=== PATIENT | female | born 1940 | race Caucasian/White ===

== ENCOUNTER 2018-01-20 17:40 | Emergency (ER) | payer OTHER ==
[~2018-01-20] VITALS: Ht 149.9 cm; Wt 50.8 kg
[~2018-01-20 17:40] MED LIST: ALBU90OI INH; AMLOATOR PO; ASPI81CH; Advil200 M1; Atrovent Inha12.9 GM INH; CILO50 PO; CLOP75 PO; CYCL10; HYDACE5 PO; HYDCHL12.5 PO; IBUHYD PO; INDO25 PO; LIVALO2 MG; METF500 PO; Prednisone50 MG PO; Zithromax250 MG PO
[2018-01-20] MEDS ORDERED: LOSA50 PO (17:52)
[2018-01-20] MEDS ORDERED: LEVSOD50 PO (17:52)
[2018-01-20 18:15] LABS: BASOPHILS ABSOLUTE AUTO 0.04 K/mm3 (0.00-0.23); BASOPHILS PERCENT AUTO 1 % (0-2); EOSINOPHILS ABSOLUTE AUTO 0.12 K/mm3 (0.00-0.68); EOSINOPHILS PERCENT AUTO 2 % (0-6); Hematocrit 41.4 % (33.0-51.0); Hemoglobin 13.5 g/dL (11.5-16.0); IMMATURE GRAN ABSOLUTE AUTO 0.01 K/mm3 (0.00-0.10); IMMATURE GRAN PERCENT AUTO 0 % (0-1); LYMPHOCYTES ABSOLUTE AUTO 1.74 K/mm3 (0.84-5.20); LYMPHOCYTES PERCENT AUTO 27 % (21-46); MONOCYTES ABSOLUTE AUTO 0.82 K/mm3 (0.16-1.47); MONOCYTES PERCENT AUTO 13 % (4-13); Mean Corpuscular HGB 29.4 pg (26.0-34.0); Mean Corpuscular HGB Conc 32.6 g/dL (31.5-36.5); Mean Corpuscular Volume 90 fL (80-100); Mean Platelet Volume 11.1 fL (9.1-12.4); NEUTROPHILS ABSOLUTE AUTO 3.78 K/mm3 (1.96-9.15); NEUTROPHILS PERCENT AUTO 58 % (41-73); Platelet Count 196 K/mm3 (150-400); RDW Coefficient Variation 14.1 % (11.7-14.2); RDW Standard Deviation 46.5 fL (35.1-46.3); Red Blood Cell Count 4.59 M/mm3 (3.80-5.20); White Blood Cell Count 6.51 K/mm3 (4.00-11.30)
[2018-01-20 18:37] LABS: Alanine Aminotransfer (ALT/SGP 14 U/L (12-78); Albumin, Blood 3.3 g/dL (3.4-5.0); Alk Phos 100 U/L (50-136); Anion Gap 7 mmol/L (6-16); Aspartate Aminotrans (AST/SGOT 16 U/L (12-37); Bilirubin, Total 0.4 mg/dL (0.1-1.0); Blood Urea Nitrogen 13 mg/dL (8-24); Bun/Creatinine Ratio 16.5 (12.0-20.0); CO2, Blood 25 mmol/L (21-32); Calcium, Blood 8.7 mg/dL (8.5-10.1); Chloride, Blood 108 mmol/L (98-108); Creatinine, Blood 0.79 mg/dL (0.40-1.00); Globulin, Blood 3.3 g/dL (2.2-4.0); Glomerular Filtration Rate >60 (60-); Glucose, Blood 142 mg/dL (70-99); Potassium, Blood 3.6 mmol/L (3.5-5.5); Sodium, Blood 140 mmol/L (136-145); Total Protein, Blood 6.6 g/dL (6.4-8.2); Troponin I <0.015 ng/mL (0.000-0.040)
== END 2018-01-20 20:17 | disposition home or self-care (01) ==
LOC: ER 17:40
PROVIDERS: Emergency Medicine
DX: R53.1 Weakness (principal); E86.0 Dehydration; I10 Essential (primary) hypertension; F17.210 Nicotine dependence, cigarettes, uncomplicated
CPT/HCPCS: 51701; 71046; 80053; 84484; 85025; 93005; 93010; 96360; 99284-25; J7030

== ENCOUNTER 2018-10-15 06:31 | Inpatient (IN) | payer MEDICARE, SELFPAY ==
[~2018-10-15] VITALS: Ht 149.9 cm; Wt 52.3 kg
[~2018-10-15 06:31] MED LIST changes: +LEVSOD50 PO; +LOSA50 PO; +METO25 PO; +XARELTO15 MG PO
[2018-10-15 06:56] LABS: BASOPHILS ABSOLUTE AUTO 0.04 K/mm3 (0.00-0.23); BASOPHILS PERCENT AUTO 0 % (0-2); EOSINOPHILS PERCENT AUTO 0 % (0-6); Hematocrit 46.3 % (33.0-51.0); Hemoglobin 15.3 g/dL (11.5-16.0); IMMATURE GRAN PERCENT AUTO 1 % (0-1); LYMPHOCYTES ABSOLUTE AUTO 1.24 K/mm3 (0.84-5.20); LYMPHOCYTES PERCENT AUTO 9 % (21-46); MONOCYTES PERCENT AUTO 12 % (4-13); Mean Corpuscular HGB 28.9 pg (26.0-34.0); Mean Corpuscular Volume 88 fL (80-100); Mean Platelet Volume 11.2 fL (9.1-12.4); NEUTROPHILS ABSOLUTE AUTO 11.51 K/mm3 (1.96-9.15); NEUTROPHILS PERCENT AUTO 79 % (41-73); Platelet Count 192 K/mm3 (150-400); RDW Coefficient Variation 13.1 % (11.7-14.2); RDW Standard Deviation 42.2 fL (35.1-46.3); Red Blood Cell Count 5.29 M/mm3 (3.80-5.20); White Blood Cell Count 14.59 K/mm3 (4.00-11.30)
[2018-10-15] MEDS ORDERED: OXYB5 PO (07:14)
[2018-10-15 07:15] LABS: Albumin, Blood 2.9 g/dL (3.4-5.0); Albumin/Globulin Ratio 0.6 (0.8-1.8); Bilirubin, Total 1.2 mg/dL (0.1-1.0); Bun/Creatinine Ratio 25.7 (12.0-20.0); Calcium, Blood 9.1 mg/dL (8.5-10.1); Creatinine, Blood 0.97 mg/dL (0.40-1.00); Globulin, Blood 4.7 g/dL (2.2-4.0); Total Protein, Blood 7.6 g/dL (6.4-8.2); Troponin I 0.067 ng/mL (0.000-0.040)
[2018-10-15] MEDS ORDERED: LEVSOD88 PO ×2 (07:17→07:18)
--- NOTE | 2018-10-15 14:31 | NUR ---
Patient is sitting up in bed and alert with sisterYudelka and daughter Sherrie, bedside. Patient explained her current symptoms and is unclear what the plan of care is. I learned about patient's spiritual back ground and about her family dynamics. I listened empathically, provided emotional support, normalized patient's experience, provided a calming presence and provided prayer. Patient responded well and showed signs of an elevated mood. I continue to remain available to patient and family.
--- NOTE | 2018-10-15 18:28 | NUR ---
SHIFT SUMMARY THE PATIENT WAS ADMITTED FROM THE E/R TO THE MEDICAL FLOOR, ROOM #356. THE PATIENT WAS ADMITTED FOR SEPSIS AND PNEUMONIA. THE PATIENT'S ADMISSION WAS COMPLETED AT THAT TIME. THE PATIENT STARTED EXPERIENCING RAPID HEART BEAT AT [address] PORTILLO WAS CALLED FOR DIRECTIONS. DR. PORTILLO STATED TO CONTINUE TO MONITER. AT 1810 THE PATIENT'S HR WAS BOUNCING UP TO [address] REYNAGA WAS CALLED. SHE ORDERED A BOLUS OF NS GIVEN TO THE PATIENT, 5 MG, IV OF LOPRESSOR AND HAVE THE PATIENT MOVED TO PCU. THE PATIENT IS WAITING A BED IN PCU AT THIS TIME, WILL CONTINUE TO MONITOR.
--- NOTE | 2018-10-15 22:57 | NUR ---
PCU NIGHTSHIFT PT ARRIVED TO UNIT APPROX. 1920 FROM MEDICAL FLOOR VIA BED. PT SLIDE OVER TO NEW BED BY STAFF. ORIENTED PT TO UNIT, ROOM, AND PROCEDURES. ASSESSMENT COMPLETED, PT HEART RATE IN 140'S ON ARRIVAL THIS WAS DOWN FROM PREVIOUS HEART RATE. PT WAS CURRENLTY COMPLETING 1L NS BOLUS AT THIS TIME. VITAL SIGNS STABLE. ALTHOUGH BP SLIGHTLY LOW, BUT MAP REMAINS IN 70'S AT THIS TIME. PT REPORTED SOME NAUSEA INTERMITTENTLY. PT HAS SOME GENERALIZED WEAKNESS. PT RECIEVED EVENING MEDICATIONS. CONTINUED TO MONITOR HEART RATE. HEART RATE CONTINUED TO INCREASE. MONITORED HEART RATE FOR APPROX AN HOUR AFTER RECIEVING EVENING MEDICATIONS. HEART RATE AVERAGING 160'S. PHYSICIAN NOTIFIED. RECIEVED NEW ORDERS. GAVE PER EMAR. WILL CONTINUE TO MONITOR HEART RATE AND BLOOD PRESSURE. BED IN LOW POSITIN, BED ALARM ON, CALL LIGHT IN REACH, PT DENIES ANY NEEDS.
--- NOTE | 2018-10-16 01:55 | NUR ---
ASSUME CARE. TRANSFER FROM PCU 3 TO ICU 5. TRANSFER PER SLIDER SHEET. MONITOR PLACED SHOWING A FIB . HEART RATE 120'S-130'S. ALERT ORIENTED TIMES THREE. DENIES DISCOMFORT. LUNG SOUNDS CLEAR UPPER LOBES, WITH DECREASED SOUNDS IN THE BASES. O2 IN PLACE AT 3L/MIN. SPO2 96%. RESPIRATIONS REGULAR AND EASY AT REST. ABDOMEN SOFT WITH BOWEL SOUNDS FOUR QUADS. INCONTINENT OF STOOL AND BLADDER. PLACED IN ATTENDS. DR DICK NOTIFIED OF UNAVAILABILTY OF PICC PLACEMENT TONIGHT. ORDERS NOTED. 0215 RHYTHM CHANGE TO SINUS . HEART RATE 70'S-80'S BLOOD PRESSURE IMPROVED TO MAINTAIN MAP GREATER THAN 65. CONTINUE TO MONITOR AND REPORT CHANGE IN PATIENT CONDITION.
--- NOTE | 2018-10-16 02:00 | NUR ---
NOTE MONITORED PT BP AND HEART RATE. BP INCREASED TO 99/64. AFTER BLOUS COMPLETE DID ANOTHER SET OF VITAL SIGNS AND PT BLOOD PRESSURE 90/53 NEXT CHECK AND HEART RATE AVERAGING 130'S. NEXT CHECK BP WAS 74/51. RAFIQAN WAS NOTFIED OF THIS. PT HEART RATE AVERAGING 130'S AT THIS TIME. PT STILL HAVE NO URINE OUTPUT AND REPORTED NOT FEELING WELL. PHYSCIAN NOTIFIED OF THIS. RECIEVED ORDRES TO TRANSFER PT TO ICU. REPROT CALLED TO LEAD MANUFACTURING TECHNICIAN. PT TRANSPORTED TO ICE VIA BED MY PEER STAFF.
[2018-10-16 02:40] LABS: BASOPHILS ABSOLUTE AUTO 0.03 K/mm3 (0.00-0.23); BASOPHILS PERCENT AUTO 0 % (0-2); EOSINOPHILS ABSOLUTE AUTO 0.01 K/mm3 (0.00-0.68); EOSINOPHILS PERCENT AUTO 0 % (0-6); Hematocrit 38.3 % (33.0-51.0); Hemoglobin 12.1 g/dL (11.5-16.0); IMMATURE GRAN ABSOLUTE AUTO 0.07 K/mm3 (0.00-0.10); IMMATURE GRAN PERCENT AUTO 1 % (0-1); LYMPHOCYTES PERCENT AUTO 10 % (21-46); MONOCYTES ABSOLUTE AUTO 1.06 K/mm3 (0.16-1.47); MONOCYTES PERCENT AUTO 11 % (4-13); Mean Corpuscular HGB 28.7 pg (26.0-34.0); Mean Corpuscular HGB Conc 31.6 g/dL (31.5-36.5); Mean Corpuscular Volume 91 fL (80-100); Mean Platelet Volume 11.8 fL (9.1-12.4); NEUTROPHILS ABSOLUTE AUTO 7.61 K/mm3 (1.96-9.15); NEUTROPHILS PERCENT AUTO 78 % (41-73); Platelet Count 152 K/mm3 (150-400); RDW Coefficient Variation 13.3 % (11.7-14.2); RDW Standard Deviation 44.9 fL (35.1-46.3); Red Blood Cell Count 4.21 M/mm3 (3.80-5.20); White Blood Cell Count 9.78 K/mm3 (4.00-11.30)
[2018-10-16 02:55] LABS: Albumin, Blood 2.2 g/dL (3.4-5.0); Albumin/Globulin Ratio 0.6 (0.8-1.8); Bilirubin, Total 0.6 mg/dL (0.1-1.0); Bun/Creatinine Ratio 28.8 (12.0-20.0); Calcium, Blood 7.6 mg/dL (8.5-10.1); Creatinine, Blood 1.04 mg/dL (0.40-1.00); Globulin, Blood 3.6 g/dL (2.2-4.0); Potassium, Blood 4.7 mmol/L (3.5-5.5); Total Protein, Blood 5.8 g/dL (6.4-8.2)
[2018-10-16 02:57] LABS: Troponin I 2.39 ng/mL (0.000-0.040)
--- NOTE | 2018-10-16 03:18 | NUR ---
DR DICK NOTIFIED OF ELEVATED TROPONIN ORDERS NOTED. CONTINUE TO MONITOR AND REPORT CHANGE IN PATIENT CONDITION.
--- NOTE | 2018-10-16 03:37 | NUR ---
CHANGE IIN RHYTHM. SEE STRIP. DENIES DISCOMFORT, CHEST PAIN , SHORTNESS OF BREATH. REMAINS ASYMPOTIC. WILL CONTINUE TO MONITOR AND REPORT CHANGE IN PATIENT CONDITION.
[2018-10-16 04:09] LABS: Magnesium, Blood 1.7 mg/dL (1.6-2.4); Phosphorus, Blood 3.3 mg/dL (2.5-4.9)
--- NOTE | 2018-10-16 04:27 | NUR ---
DOCTOR MAYELIN NOTIFIED OF RUN OF 24 SEC V-TACH AND AM LABS. ORDER OBTAINED FOR CARDIOLOGY CONSULT.
--- NOTE | 2018-10-16 06:36 | NUR ---
SHIFT SUMMARY: RESTS QUIETLY WHEN UNDISTURBED. MONITOR INTACT SHOWING SINUS RHYTHM. HEART RATE 80'S-90'S DENIES DISCOMFORT. LUNG SOUNDS CLEAR UPPER LOBES WITH DECREASED SOUNDS IN THE BASES. RESPIRATIONS REGULAR AND EASY AT REST. SPO2 93-97% ON ROOM AIR. ABDOMEN SOFT WITH BOWEL SOUNDS FOUR QUADS. ATTENDS IN PLACE SECONDARY TO INCONTINENCE. NO EDEMA NOTED. JOSEPH WELL IN BED OCC COARSE/HARSH COUGH. CONTINUE TO MONITOR AND REPORT CHANGE IN PATIENT CONDITION. SEE RHYTHM SHEET FOR ECTOPY.
--- NOTE | 2018-10-16 09:59 | NUR ---
PT AWAKE AND ALERT SITTING UP IN BED THIS AM AT 0715. PT DENIES C/O PAIN, C/O SOME SOB W EXERTION. PT HAS FREQUENT PRODUCTIVE COUGH. SATS 95% ON RA. NSR W RATE 90'S, BP STABLE. POWERGLIDE PLACED TO GHADA. TROPONIN SENT. DR NIEVES IN THIS AM, ORDERED ECHO AND ORESTES SCAN; ECHO COMPLETED.
--- NOTE | 2018-10-16 13:24 | NUR ---
DR RUBIN CALLED AND GIVEN UPDATE ON PT INCLUDING TROPONIN LEVEL. PT HAS PAROXYSMAL AFIB. PT CONVERTED BACK TO AFIB AROUND 1300 W SOME HYPOTENSION; MAPS REMAIN >65. PT ASYMPTOMATIC. PT CONTINUES TO DENIES CHEST PAIN/PRESSURE. PT CONT TO HAVE PRODUCTIVE COUGH W THICK KEYS/YELLOW SPUTUM. WILL INQUIRE ABOUT EXPECTORANT.
--- NOTE | 2018-10-16 14:43 | NUR ---
REPORT GIVEN TO RECEIVING RN ON MEDICAL FLOOR. PT TRANSFERED VIA W/C IN STABLE CONDITION
--- NOTE | 2018-10-16 15:17 | NUR ---
pt arrived to the unit at 14:46
[2018-10-16 15:21] LABS: International Normalized Ratio 1.08; Prothrombin Time Results 11.4 Sec (9.7-11.5)
--- NOTE | 2018-10-16 17:34 | NUR ---
THIS PT IS ALERT AND ORIENTED AND COOPERATIVE WITH CARE. SHE TRANSFERRED HERE FROM THE ICU THIS AFTERNOON. SHE IS IN AND OUT OF AFIB WITH REALLY HIGH HEART RATES. ACCORRDING TO THE PCU GIFT PACKER THE PT'S HR WENT UP TO 185 BPM. THE PT AT THE TIME WAS COMPLAINING OF FEELING HOT AND KNEW HER HEART WAS RACING. A MANUAL PULSE WAS TAKEN WHICH WAS [address] PORTILLO NOTIFIED. PT IS A 1PA. HER SISTER HAS ASKED THAT SHE BE NOTIFIED OF ANY BIG CHANGES WITH THE PATIENT'S HEALTH, DAY OR NIGHT. WILL CONTINUE TO MONITOR.
--- NOTE | 2018-10-17 04:58 | NUR ---
SHIFT SUMMARY PT SLEPT FAIR DURING THE NIGHT, HAD SOME COUGHING SPELLS THAT WOULD WAKE HER UP. RECEIVED PRN BREATHING TREATMENTS DURING THE NIGHT. TELE STATED PT HAD CONVERTED BACK INTO A NSR WITH A RATE IN THE 90'S AFTER METOPROLOL GIVEN IVP PER PREVIOUS SHIFT. SCHEDULED PO METOPROLOL GIVEN AT MIDNIGHT, NO CALLS RECEIVED FROM THIOKOL OPERATOR DURING THE NIGHT ABOUT AN INCREASED HEART RATE. THIOKOL OPERATOR STATES NSR ALL NIGHT. PT HAS HAD NO C/O'S PAIN DURING THE NIGHT OR PALPITATIONS. WILL CONTINUE TO MONITOR.
[2018-10-17 05:17] LABS: BASOPHILS ABSOLUTE AUTO 0.03 K/mm3 (0.00-0.23); BASOPHILS PERCENT AUTO 0 % (0-2); EOSINOPHILS ABSOLUTE AUTO 0.04 K/mm3 (0.00-0.68); EOSINOPHILS PERCENT AUTO 0 % (0-6); Hemoglobin 11.9 g/dL (11.5-16.0); IMMATURE GRAN ABSOLUTE AUTO 0.08 K/mm3 (0.00-0.10); IMMATURE GRAN PERCENT AUTO 1 % (0-1); LYMPHOCYTES ABSOLUTE AUTO 0.98 K/mm3 (0.84-5.20); LYMPHOCYTES PERCENT AUTO 10 % (21-46); MONOCYTES ABSOLUTE AUTO 1.17 K/mm3 (0.16-1.47); MONOCYTES PERCENT AUTO 12 % (4-13); Mean Corpuscular HGB 29.3 pg (26.0-34.0); Mean Corpuscular HGB Conc 32.2 g/dL (31.5-36.5); Mean Corpuscular Volume 91 fL (80-100); Mean Platelet Volume 11.2 fL (9.1-12.4); NEUTROPHILS PERCENT AUTO 77 % (41-73); Platelet Count 189 K/mm3 (150-400); RDW Coefficient Variation 13.7 % (11.7-14.2); RDW Standard Deviation 46.5 fL (35.1-46.3); Red Blood Cell Count 4.06 M/mm3 (3.80-5.20)
[2018-10-17 05:36] LABS: International Normalized Ratio 1.05; Prothrombin Time Results 11.1 Sec (9.7-11.5)
[2018-10-17 05:44] LABS: Alanine Aminotransfer (ALT/SGP 25 U/L (12-78); Albumin, Blood 2.4 g/dL (3.4-5.0); Albumin/Globulin Ratio 0.6 (0.8-1.8); Alk Phos 190 U/L (50-136); Anion Gap 6 mmol/L (6-16); Aspartate Aminotrans (AST/SGOT 49 U/L (12-37); Bilirubin, Total 0.4 mg/dL (0.1-1.0); Blood Urea Nitrogen 19 mg/dL (8-24); Bun/Creatinine Ratio 26.7 (12.0-20.0); CO2, Blood 22 mmol/L (21-32); Calcium, Blood 8.5 mg/dL (8.5-10.1); Chloride, Blood 109 mmol/L (98-108); Creatinine, Blood 0.71 mg/dL (0.40-1.00); Globulin, Blood 3.7 g/dL (2.2-4.0); Glomerular Filtration Rate >60 (60-); Glucose, Blood 115 mg/dL (70-99); Potassium, Blood 4.4 mmol/L (3.5-5.5); Sodium, Blood 137 mmol/L (136-145); Total Protein, Blood 6.1 g/dL (6.4-8.2)
--- NOTE | 2018-10-17 08:59 | NUR ---
CALLED DR. PORTILLO TO REPORT PT NOW IN AFIB IN THE 160'S SUSTAINED PER CUT LACE MACHINE OPERATOR. PT ASSISTED BACK TO BED, O2 APPLIED @2L PER NC. PT CURRENTY C/O SOB AND DIZZINESS, INCREASED WORK OF BREATHING NOTED. DR. PORTILLO AWARE OF ALL ABOVE AND NOW AT BEDSIDE.
--- NOTE | 2018-10-17 10:00 | NUR ---
DIGITAL PRODUCTION OPERATOR CALLED TO REPORT PT NOW IN SINUS RHYTHM. VSS STABLE HOWEVER HTN NOTED. PT LYING IN BED TALKING WITH A FRIEND AND DENIES ANY COMPLAINTS. RR EVEN AND UNLABORED. ALL ABOVE REPORTED TO DR. PORTILLO.
--- NOTE | 2018-10-17 14:41 | NUR ---
PT REMAINS IN SR IN 70'S TO 80'S. FAMILY AND FRIENDS TO VISIT THROUGHOUT DAY. PT DENIES ANY C/O. UP IN W/C AROUND FLOOR WITH FRIEND.
--- NOTE | 2018-10-17 16:29 | NUR ---
TRANSPORTED TO CT VIA STRETCHER IN NO ACUTE DISTRESS. FAMILY AT BEDSIDE.
--- NOTE | 2018-10-17 18:43 | NUR ---
SHIFT SUMMARY A AND OX3. STANDBY ASSIST IN ROOM W/C FOR AMBULATION. LUNG CA PT REQUESTING NO TREATMENT. REFUSED COUMADIN. MULTIPLE FRIENDS AND FAMILY AT BEDSIDE. CT COMPLETED TODAY. DENIES PAIN. EATING AND DRINKING WELL.
--- NOTE | 2018-10-18 03:49 | NUR ---
SHIFT SUMMARY PATIENT HAD NO ACUTE CHANGES OBSERVED THIS SHIFT. AXOX 3 AND SBA TO BSC. POWERGLIDE GHADA INTACT. AGRICULTURE RESEARCH DIRECTOR REPORTS NSR 78. BP ELEVATED AT SHIFT CHANGE AND HAD SCHEDULE LOPRESSOR FOR MIDNIGHT. BP REASSESSED FROM 185/113 TO 150/97. DENIES PAIN, SOB, AND N/V. COOPERATIVE WITH CARE. CALL LIGHT IN REACH. BED IN LOWEST POSITION. WILL CONTINUE TO MONITOR UNTIL DAY SHIFT NURSE ASSUMES CARE.
[2018-10-18 05:40] LABS: BASOPHILS ABSOLUTE AUTO 0.02 K/mm3 (0.00-0.23); BASOPHILS PERCENT AUTO 0 % (0-2); EOSINOPHILS ABSOLUTE AUTO 0.08 K/mm3 (0.00-0.68); EOSINOPHILS PERCENT AUTO 1 % (0-6); Hematocrit 36.7 % (33.0-51.0); Hemoglobin 11.7 g/dL (11.5-16.0); IMMATURE GRAN ABSOLUTE AUTO 0.05 K/mm3 (0.00-0.10); IMMATURE GRAN PERCENT AUTO 1 % (0-1); LYMPHOCYTES ABSOLUTE AUTO 0.79 K/mm3 (0.84-5.20); LYMPHOCYTES PERCENT AUTO 8 % (21-46); MONOCYTES ABSOLUTE AUTO 1.02 K/mm3 (0.16-1.47); MONOCYTES PERCENT AUTO 11 % (4-13); Mean Corpuscular HGB 28.8 pg (26.0-34.0); Mean Corpuscular HGB Conc 31.9 g/dL (31.5-36.5); Mean Corpuscular Volume 90 fL (80-100); Mean Platelet Volume 11.5 fL (9.1-12.4); NEUTROPHILS ABSOLUTE AUTO 7.52 K/mm3 (1.96-9.15); NEUTROPHILS PERCENT AUTO 79 % (41-73); Platelet Count 234 K/mm3 (150-400); RDW Coefficient Variation 13.5 % (11.7-14.2); RDW Standard Deviation 45.6 fL (35.1-46.3); Red Blood Cell Count 4.06 M/mm3 (3.80-5.20); White Blood Cell Count 9.48 K/mm3 (4.00-11.30)
[2018-10-18 05:56] LABS: International Normalized Ratio 1.47
[2018-10-18 06:08] LABS: Albumin, Blood 2.5 g/dL (3.4-5.0); Anion Gap 7 mmol/L (6-16); Blood Urea Nitrogen 10 mg/dL (8-24); Bun/Creatinine Ratio 17.1 (12.0-20.0); CO2, Blood 25 mmol/L (21-32); Calcium, Blood 8.6 mg/dL (8.5-10.1); Chloride, Blood 103 mmol/L (98-108); Creatinine, Blood 0.59 mg/dL (0.40-1.00); Glomerular Filtration Rate >60 (60-); Glucose, Blood 102 mg/dL (70-99); Phosphorus, Blood 1.9 mg/dL (2.5-4.9); Potassium, Blood 4.6 mmol/L (3.5-5.5); Sodium, Blood 135 mmol/L (136-145)
[2018-10-18 06:14] LABS: Troponin I 0.892 ng/mL (0.000-0.040)
--- NOTE | 2018-10-18 15:18 | NUR ---
RE:PROVIDER CONSULT RADIATION ONCOLOGIST CALLED HOSPITALIST AND INFORMED HIM THAT HIS CHOSEN ONCOLOGIST, GLEN TAN, WOULD BE OUT OF THE OFFICE UNTIL MONDAY AND WAS UNABLE TO CONSULT AT THIS TIME. NO NEW ORDERS.
--- NOTE | 2018-10-18 17:08 | NUR ---
Spiritual Care initial visit: I met with Sofia this morning. she is a [place] woman with a strong efrem in God that sustains her. She tells me she is awaiting test results to determine what's going to happen. She smiles easily and was appreciaitve of prayer and spiritual encouragement. She has a sister that works here as a welder [employer]. Family appears to be loving and supportive. Sister met with me in hallway. She is tearful and admits they "don't understand exactly all that is happening. I beleive pt and family may benefit from a careful,understandable explaination of dx and outcomes of various options. [facility] services will remain available.
--- NOTE | 2018-10-18 17:23 | NUR ---
ATTEMPTED TO CALL [facility]SULT DR. HOLM'S VOICEMAIL IS NOT ACCEPTING MESSAGES. I INFORMED HOSPITALIST THAT I COULD NOT CALL THE CONSULT TODAY. HE AGREED THE CONSULT COULD WAIT UNTIL TOMORROW TO BE PHONED IN.
--- NOTE | 2018-10-18 17:46 | NUR ---
pt sleeping her sister is at bedside with her friend and her other sister is coming in. Radhika her sister states they did sign a power of litigation attorney associate but she cant find it. will see Anthony has a copy. Radhika is concerned that children are taking her money. Radhika has been helping her for the past few years as she is getting more frail. Review of plan of care with her sister and discussed prognoisis and that treatment would be palliative. Advised Radhika that unless they have a document or permission from eldest child they are decision maker. Radhika has been her advocate and caregiver befor along with her firends and other sister. Relations with children has been strained. Will try to facilitate a family plan of support. will follow up after consults to help with plan of care.
--- NOTE | 2018-10-18 18:11 | NUR ---
SHIFT SUMMARY 78 YR OLD FEMALE. ADMITTED FOR SEPSIS/PNEUMONIA/ELEVATED TROPONINS. PT IS A&O X4. 1 PERSON ASSIST WHEN WEAK. 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 LATER THE FAMILY MAY CONSIDER HOSPICE, BUT WANTS CONSULTS W/PACKING INSPECTOR AND ONCOLOGY TO BE SURE. POWERGLIDE IN RT UPPER ARM DOES DRAW. LIVES W/DAUGHTER AT HOME. HX: CAD, STENTS, COPD. KEMAR ANTONIO FOR DVT PREVENTION.
--- NOTE | 2018-10-19 03:52 | NUR ---
SUMMARY: 78 Y/O FEMALE RESTED COMFORTABLY ALL EVENING IN BED. PT DECLINED TO TAKE SCHEDULED WARFARIN 2.5MG AND STATED, "I HAVE NO INTENTION OF TAKING THAT RAT POISON". PT ALERT AND ORIENTED X 3. PTS TELEMETRY REFLECTS NSR PER COMMISSIONER CONSERVATION OF RESOURCES CAROL. PT DENIES PAIN OR NAUSEA. PTS SISTER AND BROTHER IN LAW AT SIDE BEGINNING OF SHIFT AND VERY SUPPORTIVE. PTS BED LOW POSITION, CALL LIGHT AT SIDE, BED ALARM APPLIED.
[2018-10-19 05:47] LABS: BASOPHILS ABSOLUTE AUTO 0.02 K/mm3 (0.00-0.23); BASOPHILS PERCENT AUTO 0 % (0-2); EOSINOPHILS ABSOLUTE AUTO 0.01 K/mm3 (0.00-0.68); EOSINOPHILS PERCENT AUTO 0 % (0-6); Hematocrit 37.3 % (33.0-51.0); Hemoglobin 12.2 g/dL (11.5-16.0); IMMATURE GRAN ABSOLUTE AUTO 0.06 K/mm3 (0.00-0.10); IMMATURE GRAN PERCENT AUTO 1 % (0-1); LYMPHOCYTES ABSOLUTE AUTO 0.64 K/mm3 (0.84-5.20); LYMPHOCYTES PERCENT AUTO 10 % (21-46); MONOCYTES ABSOLUTE AUTO 0.36 K/mm3 (0.16-1.47); MONOCYTES PERCENT AUTO 6 % (4-13); Mean Corpuscular HGB 29.5 pg (26.0-34.0); Mean Corpuscular HGB Conc 32.7 g/dL (31.5-36.5); Mean Corpuscular Volume 90 fL (80-100); Mean Platelet Volume 11.1 fL (9.1-12.4); NEUTROPHILS PERCENT AUTO 82 % (41-73); Platelet Count 247 K/mm3 (150-400); RDW Coefficient Variation 13.8 % (11.7-14.2); RDW Standard Deviation 45.6 fL (35.1-46.3); Red Blood Cell Count 4.13 M/mm3 (3.80-5.20); White Blood Cell Count 6.19 K/mm3 (4.00-11.30)
[2018-10-19 06:03] LABS: Albumin, Blood 2.5 g/dL (3.4-5.0); Anion Gap 6 mmol/L (6-16); Blood Urea Nitrogen 11 mg/dL (8-24); Bun/Creatinine Ratio 17.7 (12.0-20.0); CO2, Blood 27 mmol/L (21-32); Calcium, Blood 8.7 mg/dL (8.5-10.1); Chloride, Blood 105 mmol/L (98-108); Creatinine, Blood 0.62 mg/dL (0.40-1.00); Glomerular Filtration Rate >60 (60-); Glucose, Blood 149 mg/dL (70-99); International Normalized Ratio 1.06; Phosphorus, Blood 2.8 mg/dL (2.5-4.9); Potassium, Blood 4.6 mmol/L (3.5-5.5); Prothrombin Time Results 11.2 Sec (9.7-11.5); Sodium, Blood 138 mmol/L (136-145)
--- NOTE | 2018-10-19 15:34 | NUR ---
SHIFT SUMMARY 78 YR OLD FEMALE ADMITTED FOR SEPSIS/POST OBSTRUCTIVE PNEUMONIA (LUNG CANCER W/METASTASIS TO BRAIN) AND NON ST ELEVATION ME (TROPONIN PEAK 4.100). PT AND FAMILY WERE CONSIDERING HOSPICE BUT NOW ARE CONSIDERING TREATMENT OPTIONS TO EXTEND LIFE. AWAITING ONCOLOGY CONSULT TO INVESTIGATE PALLIATIVE TREATMENT POSSIBILITIES. PT ON REGULAR DIET, TAKES PILLS WHOLE, A&O X4, ROOM AIR. HX:CAD, STENTS, COPD. PT IS INDEPENDENT TO 1 STANDBY IN ROOM DEPENDING ON SOB. PT EXPERIENCING FREQUENT COUGHING. POWERGLEV IN GHADA -SERAFIN THIS MORNING FOR LABS, BUT NEEDED RE-DRAWN (HEMOLYSIS OF SAMPLE). BNP 717 ON ADMIT, NOW 876.
--- NOTE | 2018-10-19 16:36 | NUR ---
CALLED DR. PRADEEP HOLM/JESSICA OFFICE CLOSED EARLY TODAY. VOICEMAILS ARE UNABLE TO BE RECORDED FOR THE SECOND DAY IN A ROW (MESSAGE INBOX IS FULL - RECORDING). INFORMED DR. ROBERTO. HE STATED THAT LIKELY THERE WOULD BE NO CONSULT AVAILABLE UNTIL MONDAY ANYWAY. WE WILL TAKE THIS UP AGAIN ON MONDAY MORNING TO ARRANGE ONCOLOGY CONSULT. I WILL PASS THIS ALONG TO THE ONCOMING NURSE AND LEAVE A NOTE ON THE WHITEBOARD TO BE CERTAIN THIS IS DONE.
--- NOTE | 2018-10-20 05:30 | NUR ---
SHIFT SUMMARY PT PLEASANT AND COOPERATIVE. HAD A DIFFICULT TIME FALLING ASLEEP THIS EVENING. HAD LOTS OF COMPANY IN AND OUT. COMPANY WHEELED HER OUTSIDE SEVERAL TIMES TO SMOKE. PT ON RA. TELEMETRY READING SR 83. PT GOT BED BATH THIS EVENING. AMBULATED INDEPENDENTLY IN THE ROOM. STEADY ON FEET. PT DENIED PAIN. NO ACUTE CHANGES THROUGHOUT THE NIGHT. VSS. WILL CONTINUE TO MONITOR.
[2018-10-20 05:43] LABS: BASOPHILS ABSOLUTE AUTO 0.02 K/mm3 (0.00-0.23); BASOPHILS PERCENT AUTO 0 % (0-2); EOSINOPHILS PERCENT AUTO 0 % (0-6); Hematocrit 35.3 % (33.0-51.0); Hemoglobin 11.5 g/dL (11.5-16.0); IMMATURE GRAN ABSOLUTE AUTO 0.12 K/mm3 (0.00-0.10); IMMATURE GRAN PERCENT AUTO 2 % (0-1); LYMPHOCYTES ABSOLUTE AUTO 0.97 K/mm3 (0.84-5.20); LYMPHOCYTES PERCENT AUTO 12 % (21-46); MONOCYTES ABSOLUTE AUTO 0.68 K/mm3 (0.16-1.47); MONOCYTES PERCENT AUTO 8 % (4-13); Mean Corpuscular HGB 28.8 pg (26.0-34.0); Mean Corpuscular HGB Conc 32.6 g/dL (31.5-36.5); Mean Corpuscular Volume 88 fL (80-100); Mean Platelet Volume 11.1 fL (9.1-12.4); NEUTROPHILS ABSOLUTE AUTO 6.39 K/mm3 (1.96-9.15); NEUTROPHILS PERCENT AUTO 78 % (41-73); Platelet Count 292 K/mm3 (150-400); RDW Coefficient Variation 13.8 % (11.7-14.2); RDW Standard Deviation 44.1 fL (35.1-46.3); White Blood Cell Count 8.18 K/mm3 (4.00-11.30)
[2018-10-20 05:51] LABS: Albumin, Blood 2.3 g/dL (3.4-5.0); Anion Gap 6 mmol/L (6-16); Blood Urea Nitrogen 21 mg/dL (8-24); Bun/Creatinine Ratio 31.1 (12.0-20.0); CO2, Blood 29 mmol/L (21-32); Calcium, Blood 8.5 mg/dL (8.5-10.1); Chloride, Blood 105 mmol/L (98-108); Creatinine, Blood 0.68 mg/dL (0.40-1.00); Glomerular Filtration Rate >60 (60-); Glucose, Blood 137 mg/dL (70-99); International Normalized Ratio 1.16; Phosphorus, Blood 2.6 mg/dL (2.5-4.9); Prothrombin Time Results 12.1 Sec (9.7-11.5); Sodium, Blood 140 mmol/L (136-145)
--- NOTE | 2018-10-20 18:21 | NUR ---
PATIENT IS A/OX4, UP INDEPENDENTLY IN ROOM. VSS THIS SHIFT. CALM AND COOPERATIVE WITH CARE AND CALLS APPROPRIATELY FOR ASSISTANCE. DENIES ANY PAIN. MAINTAINING SATS ON RA. SR ON TELE IN THE 70'S DENIES ANY SOB OR CHEST PAIN. POWERGLIDE TO R UPPER ARM WNL AND SL. ONCOLOGY CONSULT ORDERED AND WILL NEED TO BE CALLED IN ON MONDAY.
--- NOTE | 2018-10-21 03:57 | NUR ---
SHIFT SUMMARY NO ACUTE CHANGES. PT DENIED PAIN. CONTINUES TO HAVE COARSE LUNG SOUNDS AND HAVE A COUGH WITH THICK KEYS SPUTUM PRODUCTION. COUGH DOES APPEAR HOWEVER TO BE IMPROVING. PT REMAINS ON RA AND DENIES SOB. WALKS INDEPENDENTLY IN THE ROOM. WHEELED DOWN X 1 THIS EVENING BY FAMILY MEMBER OTHERWISE REMAINED IN HER ROOM. TELEMETRY RUNNING SR 79. VSS. WILL CONTINUE TO MONITOR.
[2018-10-21 05:15] LABS: BASOPHILS ABSOLUTE AUTO 0.02 K/mm3 (0.00-0.23); BASOPHILS PERCENT AUTO 0 % (0-2); EOSINOPHILS PERCENT AUTO 0 % (0-6); Hematocrit 38.5 % (33.0-51.0); Hemoglobin 12.3 g/dL (11.5-16.0); IMMATURE GRAN ABSOLUTE AUTO 0.15 K/mm3 (0.00-0.10); IMMATURE GRAN PERCENT AUTO 2 % (0-1); LYMPHOCYTES ABSOLUTE AUTO 0.93 K/mm3 (0.84-5.20); LYMPHOCYTES PERCENT AUTO 10 % (21-46); MONOCYTES ABSOLUTE AUTO 0.57 K/mm3 (0.16-1.47); MONOCYTES PERCENT AUTO 6 % (4-13); Mean Corpuscular HGB 29.1 pg (26.0-34.0); Mean Corpuscular HGB Conc 31.9 g/dL (31.5-36.5); Mean Platelet Volume 11.4 fL (9.1-12.4); NEUTROPHILS ABSOLUTE AUTO 7.71 K/mm3 (1.96-9.15); NEUTROPHILS PERCENT AUTO 82 % (41-73); Platelet Count 321 K/mm3 (150-400); RDW Standard Deviation 46.4 fL (35.1-46.3); Red Blood Cell Count 4.23 M/mm3 (3.80-5.20); White Blood Cell Count 9.38 K/mm3 (4.00-11.30)
[2018-10-21 05:19] LABS: Mean Corpuscular Volume 91 fL (80-100)
[2018-10-21 05:32] LABS: International Normalized Ratio 1.67; Prothrombin Time Results 16.9 Sec (9.7-11.5)
[2018-10-21 05:34] LABS: Albumin, Blood 2.5 g/dL (3.4-5.0); Anion Gap 6 mmol/L (6-16); Blood Urea Nitrogen 24 mg/dL (8-24); Bun/Creatinine Ratio 37.6 (12.0-20.0); CO2, Blood 30 mmol/L (21-32); Calcium, Blood 8.2 mg/dL (8.5-10.1); Chloride, Blood 103 mmol/L (98-108); Creatinine, Blood 0.64 mg/dL (0.40-1.00); Glomerular Filtration Rate >60 (60-); Glucose, Blood 122 mg/dL (70-99); Phosphorus, Blood 3.3 mg/dL (2.5-4.9); Potassium, Blood 3.7 mmol/L (3.5-5.5); Sodium, Blood 139 mmol/L (136-145)
--- NOTE | 2018-10-21 19:06 | NUR ---
NO ACUTE CHANGES THIS SHIFT. PATIENT A/OX4, UP INDEPENDENTLY IN ROOM. DENIES ANY PAIN OR DISCOMFORT. LUNGS DIMINISHED, ON RA. CONTINENT/INCONTINENT TODAY. CALM AND COOPERATIVE WITH CARE, CALLS APPROPRIATELY FOR ASSISTANCE. SKIN INTACT. VSS THIS SHIFT.
[2018-10-22 05:39] LABS: International Normalized Ratio 2.41; Prothrombin Time Results 23.6 Sec (9.7-11.5)
--- NOTE | 2018-10-22 07:20 | NUR ---
SHIFT SUMMARY NO ACUTE CHANGES THIS SHIFT. PT PLEASANT AND COOPERATIVE. SLEPT WELL THROUGH MOST OF THE NIGHT. AWAITING ONCOLOGY CONSULT TO SPEAK TO AND ASSESS PT. REMAINS ON RA. INDEPENDENT IN THE ROOM. VSS. NO COMPLAINTS OF PAIN. REPORT GIVEN TO DAY RN.
[2018-10-22] MEDS ORDERED: ATOR20 PO (10:22)
[2018-10-22] MEDS ORDERED: ASPI81CH PO (10:22)
[2018-10-22] MEDS ORDERED: BENZ100A PO (10:23)
[2018-10-22] MEDS ORDERED: DEXA4 PO (10:24)
[2018-10-22] MEDS ORDERED: FURO20 PO (10:24)
[2018-10-22] MEDS ORDERED: ALBU3IS INH (10:25)
[2018-10-22] MEDS ORDERED: PANT40 (10:26)
[2018-10-22] MEDS ORDERED: LOSA25 PO (10:26)
[2018-10-22] MEDS ORDERED: WARF5 PO (10:27)
[2018-10-22] MEDS ORDERED: Micro-K10 MEQ PO (10:27)
--- NOTE | 2018-10-22 13:35 | NUR ---
DISCHARGE DISCHARGE MEDICATIONS AND INSTRUCTIONS EXPLAINED TO PATIENT AND PATIENT'S DAUGHTER. THEY STATED UNDERSTANDING. FOLLOW UP RADIATION APPOINTMENT WITH DR. TAN SCHEDULED FOR 3:30 TODAY [facility]. IV REMOVED WITHOUT DIFFICULTY. BELONGINGS WITH PATIENT. PATIENT TRANSFERED TO PRIVATE VEHICLE VIA WHEELCHAIR.
== END 2018-10-22 12:44 | disposition home or self-care (01) | DRG 871 ==
LOC: ER 06:31 → MEDS 06:32 → ICUE 09:40 → MEDS 11:16 → ICUE 11:16 → MEDS 11:17 → PCU 19:14 → ICUE 10-16 02:00 → MEDS 10-16 14:49 → ENPENDDIS 10-22 09:55 → MEDS 10-22 12:44
PROVIDERS: Emergency Medicine; Family Medicine; Internal Medicine Gastroenterology; Pharmacist; ADMIT Family Medicine
DX: A41.9 Sepsis, unspecified organism (principal); J18.9 Pneumonia, unspecified organism; I21.A1 Myocardial infarction type 2; R65.21 Severe sepsis with septic shock; I33.0 Acute and subacute infective endocarditis; C34.90 Malignant neoplasm of unspecified part of unspecified bronchus or lung; C79.31 Secondary malignant neoplasm of brain; I25.10 Atherosclerotic heart disease of native coronary artery without angina pectoris; I10 Essential (primary) hypertension; E03.9 Hypothyroidism, unspecified; J44.9 Chronic obstructive pulmonary disease, unspecified; F17.210 Nicotine dependence, cigarettes, uncomplicated; Z79.82 Long term (current) use of aspirin; I48.91 Unspecified atrial fibrillation; Z95.5 Presence of coronary angioplasty implant and graft; I73.9 Peripheral vascular disease, unspecified; I35.0 Nonrheumatic aortic (valve) stenosis; K21.9 Gastro-esophageal reflux disease without esophagitis
CPT/HCPCS: 36415; 70470; 71046; 71260; 80053; 80069; 83605; 83735; 83880; 84100; 84484; 85025; 85610; 87040; 93005; 93010; 93306; 94640; 94760; 96365-59; 99285-25; C1751; J0696; J1650; J1956; J2405; J3480; J7030; J7050; J7120; Q9967

== ENCOUNTER 2018-10-28 14:26 | Emergency (ER) | payer MEDICARE, SELFPAY ==
[~2018-10-28] VITALS: Ht 149.9 cm; Wt 48.1 kg
[~2018-10-28 14:26] MED LIST changes: +ALBU3IS INH; +ASPI81CH PO; +ATOR20 PO; +BENZ100A PO; +DEXA4 PO; +FURO20 PO; +LEVSOD88 PO; +LOSA25 PO; +Micro-K10 MEQ PO; +OXYB5 PO; +PANT40; +WARF5 PO
[2018-10-28] MEDS ORDERED: CILO100 (14:54)
[2018-10-28] MEDS ORDERED: OXYB5 PO (14:54)
[2018-10-28 14:56] LABS: BASOPHILS ABSOLUTE AUTO 0.02 K/mm3 (0.00-0.23); BASOPHILS PERCENT AUTO 0 % (0-2); EOSINOPHILS ABSOLUTE AUTO 0.05 K/mm3 (0.00-0.68); EOSINOPHILS PERCENT AUTO 0 % (0-6); Hematocrit 45.8 % (33.0-51.0); Hemoglobin 14.5 g/dL (11.5-16.0); IMMATURE GRAN ABSOLUTE AUTO 0.13 K/mm3 (0.00-0.10); IMMATURE GRAN PERCENT AUTO 1 % (0-1); LYMPHOCYTES ABSOLUTE AUTO 0.95 K/mm3 (0.84-5.20); LYMPHOCYTES PERCENT AUTO 5 % (21-46); MONOCYTES ABSOLUTE AUTO 1.48 K/mm3 (0.16-1.47); MONOCYTES PERCENT AUTO 8 % (4-13); Mean Corpuscular HGB 28.8 pg (26.0-34.0); Mean Corpuscular HGB Conc 31.7 g/dL (31.5-36.5); Mean Corpuscular Volume 91 fL (80-100); Mean Platelet Volume 10.9 fL (9.1-12.4); NEUTROPHILS ABSOLUTE AUTO 15.86 K/mm3 (1.96-9.15); NEUTROPHILS PERCENT AUTO 86 % (41-73); Platelet Count 375 K/mm3 (150-400); RDW Coefficient Variation 14.6 % (11.7-14.2); RDW Standard Deviation 47.5 fL (35.1-46.3); Red Blood Cell Count 5.04 M/mm3 (3.80-5.20); White Blood Cell Count 18.49 K/mm3 (4.00-11.30)
[2018-10-28 15:13] LABS: Alanine Aminotransfer (ALT/SGP 35 U/L (12-78); Albumin, Blood 2.9 g/dL (3.4-5.0); Albumin/Globulin Ratio 0.9 (0.8-1.8); Alk Phos 96 U/L (50-136); Anion Gap 5 mmol/L (6-16); Aspartate Aminotrans (AST/SGOT 23 U/L (12-37); Bilirubin, Total 0.6 mg/dL (0.1-1.0); Blood Urea Nitrogen 27 mg/dL (8-24); Bun/Creatinine Ratio 35.3 (12.0-20.0); CO2, Blood 31 mmol/L (21-32); Calcium, Blood 7.9 mg/dL (8.5-10.1); Chloride, Blood 102 mmol/L (98-108); Creatinine, Blood 0.77 mg/dL (0.40-1.00); Globulin, Blood 3.3 g/dL (2.2-4.0); Glomerular Filtration Rate >60 (60-); Glucose, Blood 126 mg/dL (70-99); Potassium, Blood 4.5 mmol/L (3.5-5.5); Sodium, Blood 138 mmol/L (136-145); Total Protein, Blood 6.2 g/dL (6.4-8.2); Troponin I <0.015 ng/mL (0.000-0.040)
== END 2018-10-28 16:21 | disposition home or self-care (01) ==
LOC: ER 14:26
PROVIDERS: Emergency Medicine
DX: R07.9 Chest pain, unspecified (principal); Z88.5 Allergy status to narcotic agent; Z88.8 Allergy status to other drugs, medicaments and biological substances; Z88.1 Allergy status to other antibiotic agents; Z79.899 Other long term (current) drug therapy; Z79.82 Long term (current) use of aspirin; Z79.52 Long term (current) use of systemic steroids; Z79.01 Long term (current) use of anticoagulants; F17.210 Nicotine dependence, cigarettes, uncomplicated
CPT/HCPCS: 71046; 80053; 83880; 84484; 85025; 93005; 93010; 99285-25